=== PATIENT | female | born 1980 | race Caucasian/White ===

== ENCOUNTER 2020-09-11 14:56 | Inpatient (IN) | payer OTHER ==
[~2020-09-11] VITALS: Ht 175.3 cm; Wt 95.3 kg
[2020-09-12 03:19] LABS: HEMOGLOBIN 9.8 gm/dl (12.3-15.3); RED BLOOD COUNT 3.2 M/UL (4.00-5.10); WHITE BLOOD COUNT 15.3 K/UL (4.5-11.0)
[2020-09-12 03:45] LABS: BUN/CREATININE RATIO 13 (0-10)
[2020-09-12 10:12] LABS: BORDETELLA PARAPERTUSSIS Not Detected (Not Detectd); BORDETELLA PERTUSSIS Not Detected (Not Detectd); CHLAMYDIA PNEUMONIAE Not Detected (Not Detectd); CORONAVIRUS HKU1 Not Detected (Not Detectd); CORONAVIRUS NL63 Not Detected (Not Detectd); CORONAVIRUS OC43 Not Detected (Not Detectd); CORONOAVIRUS 229E Not Detected (Not Detectd); HUMAN METAPNEUMOVIRUS Not Detected (Not Detectd); HUMAN RHINOVIRUS/ENTEROVIRUS Not Detected (Not Detectd); INFLUENZA A Not Detected (Not Detectd); INFLUENZA B Not Detected (Not Detectd); MYCOPLASMA PNEUMONIAE Not Detected (Not Detectd); PARAINFLUENZA VIRUS 1 Not Detected (Not Detectd); PARAINFLUENZA VIRUS 2 Not Detected (Not Detectd); PARAINFLUENZA VIRUS 3 Not Detected (Not Detectd); PARAINFLUENZA VIRUS 4 Not Detected (Not Detectd); RESPIRATORY SYNCYTIAL VIRUS Not Detected (Not Detectd)
[2020-09-12 12:50] LABS: SARS-CoV-2 NOT DETECTED (Not Detectd)
[2020-09-13 03:44] LABS: RED BLOOD COUNT 3.31 M/UL (4.00-5.10)
[2020-09-13 03:49] LABS: WHITE BLOOD COUNT 10.4 K/UL (4.5-11.0)
[2020-09-13 04:13] LABS: BUN/CREATININE RATIO 15 (0-10)
--- NOTE | 2020-09-13 05:50 | NUR ---
24 HR URINE INITIATED 09/13/20 AT [id number]
[2020-09-14 05:46] LABS: HEMOGLOBIN 10.2 gm/dl (12.3-15.3); RED BLOOD COUNT 3.34 M/UL (4.00-5.10); WHITE BLOOD COUNT 8.6 K/UL (4.5-11.0)
[2020-09-14] MEDS ORDERED: ACETAMINOPHEN325 MG PO (10:56)
[2020-09-14] MEDS ORDERED: INDOCIN CAP 2525 MG PO (10:56)
[2020-09-14] MEDS ORDERED: COLCHICINE 0.60.6 MG PO (10:56)
[2020-09-14] MEDS ORDERED: PROTONIX 40 MG40 M1 PO (10:56)
[2020-09-14] MEDS ORDERED: FERROUS SULFAT325 MG PO (11:06)
== END 2020-09-14 13:03 | disposition home or self-care (01) | DRG 316 ==
LOC: PROG CARE 09-12 01:42 → MED SURG 4 09-13 11:56
PROVIDERS: Internal Medicine; ADMIT Internal Medicine
PROC: B24BZZZ Ultrasonography of Heart with Aorta (ICD-10-PCS; principal; 2020-09-13)
DX: I30.9 Acute pericarditis, unspecified (principal); D50.9 Iron deficiency anemia, unspecified; Z98.890 Other specified postprocedural states; Z20.822 Contact with and (suspected) exposure to COVID-19; R07.9 Chest pain, unspecified; K21.9 Gastro-esophageal reflux disease without esophagitis; I25.10 Atherosclerotic heart disease of native coronary artery without angina pectoris; F17.210 Nicotine dependence, cigarettes, uncomplicated; J03.90 Acute tonsillitis, unspecified
CPT/HCPCS: 36415; 70491; 71045; 80048; 80053; 82550; 82553; 82728; 83540; 83550; 84439; 84443; 84484; 84550; 85025; 85379; 85610; 86140; 87633; 93005; 93308; J1650; J2543; J7050; Q9963